=== PATIENT | male | born 1965 | race American Indian/Alaskan Native ===

== ENCOUNTER 2018-05-24 21:55 | Emergency (ER) | payer OTHER ==
[2018-05-24 23:43] LABS: Basophils % (Auto) 0.4 % (0.0-1.8); Eosinophils # (Auto) 0.2 K/mm3 (0.0-0.4); Eosinophils % (Auto) 4.4 % (0.0-4.3); Hematocrit 43.7 % (35.5-45.6); Hemoglobin 15.3 gm/dl (11.8-15.2); Lymphocytes # (Auto) 0.7 K/mm3 (1.2-5.4); Lymphocytes % (Auto) 11.8 % (13.4-35.0); Mean Corpuscular HGB Conc 35 % (32-34); Mean Corpuscular Volume 88 fl (84-94); Monocytes # (Auto) 0.4 K/mm3 (0.0-0.8); Platelet Count 207 K/mm3 (140-440); Red Blood Count 4.96 M/mm3 (3.65-5.03); Red Cell Distribution Width 13.8 % (13.2-15.2)
--- NOTE | 2018-05-24 23:54 | XRay Report ---
PROCEDURE: XR CHEST ROUTINE 2V TECHNIQUE: PA and lateral chest radiographs were obtained. HISTORY: productive cough COMPARISONS: None. FINDINGS: Heart: Normal. Mediastinum/Vessels: Normal. Lungs/Pleural space: Normal. Bony thorax: No acute osseous abnormality. IMPRESSION: Normal examination. This document is electronically signed by Demetra Mazariegos DO., May 24 2018 11:52:45 PM ET
[2018-05-24 23:59] LABS: BUN/Creatinine Ratio 12; Blood Urea Nitrogen 12 mg/dL (9-20); Calcium 9.1 mg/dL (8.4-10.2); Hemolysis Index 14
--- NOTE | 2018-05-25 00:36 | Emergency Department Report ---
- General Chief Complaint: Upper Respiratory Infection Stated Complaint: FLU SYMPTOMS Time Seen by Provider: 05/25/18 00:24 Source: patient Mode of arrival: Ambulatory Limitations: No Limitations - History of Present Illness Initial Comments: Pt is a 53 yo male who presents to the ED with c/o a cough that began yesterday afternoon. He has associated rhinorrhea, generalized body aches, and congestion. He denies any ear ache, sore throat, or fever. The patient states he last took tylenol at 9:30 PM. He states that his daughter tested positive for flu today, and he believes he also has the flu and states he would like treatment. - Related Data Previous Rx's Medication Instructions Recorded Last Taken Type Benzonatate [Tessalon Perles] 100 mg PO Q8HR PRN #14 capsule 05/25/18 Unknown Rx Fluticasone [Flonase] 1 spray NS QDAY #1 bottle 05/25/18 Unknown Rx Oseltamivir Phosphate [Tamiflu] 75 mg PO BID 5 Days #10 capsule 05/25/18 Unknown Rx guaiFENesin [Mucinex] 600 mg PO BID 7 Days #14 tab.er.12h 05/25/18 Unknown Rx Allergies Allergy/AdvReac Type Severity Reaction Status Date / Time No Known Allergies Allergy Unverified 05/24/18 23:00 ED Review of Systems ROS: Stated complaint: FLU SYMPTOMS Other details as noted in HPI Comment: All other systems reviewed and negative ED Past Medical Hx - Past Medical History Previous Medical History?: No - Surgical History Past Surgical History?: Yes Additional Surgical History: achilles - Social History Smoking Status: Never Smoker Substance Use Type: Alcohol - Medications Home Medications: Home Medications Medication Instructions Recorded Confirmed Last Taken Type Benzonatate [Tessalon Perles] 100 mg PO Q8HR PRN #14 capsule 05/25/18 Unknown Rx Fluticasone [Flonase] 1 spray NS QDAY #1 bottle 05/25/18 Unknown Rx Oseltamivir Phosphate [Tamiflu] 75 mg PO BID 5 Days #10 capsule 05/25/18 Unknown Rx guaiFENesin [Mucinex] 600 mg PO BID 7 Days #14 tab.er.12h 05/25/18 Unknown Rx ED Physical Exam - General Limitations: No Limitations General appearance: alert, in no apparent distress - Head Head exam: Present: atraumatic, normocephalic - Eye Eye exam: Present: normal appearance - ENT ENT exam: Present: other (erythema and edema of the nasal turbinates, no sinus TTP) - Respiratory Respiratory exam: Present: normal lung sounds bilaterally. Absent: respiratory distress, wheezes, rales, rhonchi, stridor, chest wall tenderness, accessory muscle use, decreased breath sounds, prolonged expiratory - Cardiovascular Cardiovascular Exam: Present: regular rate, normal rhythm, normal heart sounds. Absent: systolic murmur, rubs, gallop - Neurological Exam Neurological exam: Present: alert, oriented X3 - Psychiatric Psychiatric exam: Present: normal affect, normal mood - Skin Skin exam: Present: warm, dry, intact ED Course Vital Signs 05/24/18 22:08 Temperature 98.2 F Pulse Rate 76 Respiratory 18 Rate Blood Pressure 133/80 [Right] O2 Sat by Pulse 98 Oximetry ED Medical Decision Making - Lab Data Result diagrams: 05/24/18 23:30 05/24/18 23:30 - Radiology Data Radiology results: report reviewed PROCEDURE: XR CHEST ROUTINE 2V TECHNIQUE: PA and lateral chest radiographs were obtained. HISTORY: productive cough COMPARISONS: None. FINDINGS: Heart: Normal. Mediastinum/Vessels: Normal. Lungs/Pleural space: Normal. Bony thorax: No acute osseous abnormality. IMPRESSION: Normal examination. This document is electronically signed by Demetra Mazariegos DO., May 24 2018 11:52:45 PM ET - Medical Decision Making Pt presents to the ED with c/o cough that began yesterday afternoon. He has associated congestion, rhinorrhea, and generalized body aches. Denies any other sx. CXR with no acute process. VSS. Breath sounds are clear. Pt states he "would like to be treated for flu." advised pt that the medication only shorten symptoms by one day. Pt states he would still like the tx. Will also treat symptomatically for URI. Advised to follow up with PCP in the next 2 days. Return to the ED for any new or worsening symptoms. - Differential Diagnosis PNA, URI, Influenza, Viral syndrome Critical care attestation.: If time is entered above; I have spent that time in minutes in the direct care of this critically ill patient, excluding procedure time. ED Disposition Clinical Impression: Upper respiratory infection Qualifiers: URI type: unspecified URI Qualified Code(s): J06.9 - Acute upper respiratory infection, unspecified Disposition: DC- TO HOME OR SELFCARE Is pt being admited?: No Does the pt Need Aspirin: No Condition: Stable Instructions: Upper Respiratory Infection (ED) Additional Instructions: Follow up with your primary care doctor in the next 2-3 days. Take medication as prescribed. Return to the emergency room for any new or worsening symptoms. Prescriptions: Fluticasone [Flonase] 1 spray NS QDAY #1 bottle guaiFENesin [Mucinex] 600 mg PO BID 7 Days #14 tab.er.12h Oseltamivir Phosphate [Tamiflu] 75 mg PO BID 5 Days #10 capsule Benzonatate [Tessalon Perles] 100 mg PO Q8HR PRN #14 capsule PRN Reason: Cough Referrals: CALLUM COYNE MD [Primary Care Provider] - 2-3 Days Time of Disposition: 00:38 Print Language: SLOVAK
[2018-05-25 01:07] VITALS: BP 136/79
== END 2018-05-25 00:51 | disposition home or self-care (01) ==
LOC: ED 21:55
DX: J06.9 Acute upper respiratory infection, unspecified (principal)
CPT/HCPCS: 36415; 71046; 80048; 85025